=== PATIENT | female | born 1985 | race Caucasian/White ===

== ENCOUNTER 2016-04-24 02:46 | Inpatient (IN) | payer MEDICAID ==
[2016-04-24] VITALS (7 sets, daily range): BP systolic 103–160; BP diastolic 54–77; PULSE 55–67; RESP 16–20; TEMP 97–98.1; O2SAT 96–100
[~2016-04-24] VITALS: Ht 172.7 cm; Wt 104.3 kg
[2016-04-24] MEDS ORDERED: MORPHINE 4 MG/ML INJ. SYRINGE IVP ONE ×2 (03:00→04:30)
[2016-04-24] MEDS ORDERED: NACL 0.9% 1,000 ML IV ONE (03:00)
[2016-04-24] MEDS ORDERED: ONDANSETRON HCL 4 MG/2 ML VIAL IVP ONE ×2 (03:00→04:30)
[2016-04-24 03:26] LABS: BASOPHILS # (AUTO) 0.1 K/uL (0.0-0.2); BASOPHILS % (AUTO) 0.6 % (0.0-2.0); EOSINOPHILS # (AUTO) 0.1 K/uL (0.0-0.4); EOSINOPHILS % (AUTO) 1.4 % (0.0-4.0); HEMATOCRIT 41.7 % (36-48); HEMOGLOBIN 13.8 g/dL (12.0-16.0); LYMPHOCYTES # (AUTO) 3.4 K/uL (1.0-5.5); MEAN CORPUSCULAR HEMOGLOBIN 27 pg (27-31); MEAN CORPUSCULAR HGB CONC 33 % (32-36); MEAN CORPUSCULAR VOLUME 82 fL (79.0-98.0); MONOCYTES # (AUTO) 0.7 K/uL (0.0-1.0); MONOCYTES % (AUTO) 6.9 % (1.7-9.3); NEUTROPHILS # (AUTO) 6.4 K/uL (1.8-7.7); NEUTROPHILS % (AUTO) 59.1 % (40.0-70.0); PLATELET COUNT (AUTO) 229 K/uL (130-430); RED BLOOD CELL COUNT(AUTO) 5.06 MIL/uL (4.2-6.2); RED CELL DISTRIBUTION WIDTH 13.2 % (9.0-15.0); WHITE BLOOD COUNT (AUTO) 10.7 K/uL (4.8-10.8)
[2016-04-24] MEDS ORDERED: HYDROmorphone 1 MG INJ. 1 MG/ML AMPUL IVP ONE (03:30)
[2016-04-24] MEDS ORDERED: HYDROmorphone 1 MG INJ. 1 MG/ML AMPUL ONE (03:33)
[2016-04-24 03:37] LABS: CREATININE 0.81 mg/dL (0.55-1.30); POTASSIUM 3.3 mmol/L (3.5-5.1)
[2016-04-24 03:42] LABS: ALBUMIN 3.8 g/dL (3.4-4.8); TOTAL BILIRUBIN 0.2 mg/dL (0.0-1.0); TOTAL PROTEIN, SERUM 7.5 g/dL (6.4-8.3)
[2016-04-24 03:51] LABS: BILIRUBIN,URINE NEGATIVE (NEGATIVE); BLOOD, URINE NEGATIVE (NEGATIVE); CLARITY/URINE CLOUDY (CLEAR); COLOR,URINE YELLOW (YELLOW); GLUCOSE,URINE NEGATIVE (NEGATIVE); KETONES,URINE NEGATIVE (NEGATIVE); LEUKOCYTE ESTERASE ,URINE NEGATIVE (NEGATIVE); NITRITE, URINE NEGATIVE (NEGATIVE); PH,URINE 7.5 (5.0-8.0); PROTEIN URINE NEGATIVE (NEGATIVE); UROBILINOGEN,URINE 0.2 (0.2-1.0)
[2016-04-24 03:55] LABS: BACTERIA,URINE FEW /HPF (None Seen); WBC,URINE 0-3 /HPF (0-3)
[2016-04-24 03:56] LABS: MUCUS,URINE None Seen /LPF (None Seen); RBC,URINE 0-3 /HPF (0-3); URINE AMORPHOUS PHOSPHATES 3+ /HPF (None Seen)
[2016-04-24] MEDS ORDERED: ACETAMINOPHEN 325 MG TABLET PO PRN (05:15)
[2016-04-24] MEDS ORDERED: HYDROmorphone 1 MG INJ. 1 MG/ML AMPUL IVP PRN (05:15)
[2016-04-24] MEDS ORDERED: MORPHINE 4 MG/ML INJ. SYRINGE IVP PRN (05:15)
[2016-04-24] MEDS ORDERED: ONDANSETRON HCL 4 MG/2 ML VIAL IVP PRN (05:15)
[2016-04-24] MEDS ORDERED: LR 1,000 ML IV SCH (05:15)
[2016-04-24] MEDS: PIPERACILLIN/TAZO 3.375 GM in NS 50 ML IV SCH ×2 (06:00→11:05)
== END 2016-04-24 16:15 | disposition left against medical advice (07) ==
LOC: SED 02:46 → SMU 05:05
PROVIDERS: ADMIT Internal Medicine; ATTEND Internal Medicine
DX: K80.20 Calculus of gallbladder without cholecystitis without obstruction (principal); E87.6 Hypokalemia; K82.8 Other specified diseases of gallbladder; J45.909 Unspecified asthma, uncomplicated; Z53.21 Procedure and treatment not carried out due to patient leaving prior to being seen by health care provider
CPT/HCPCS: 36415; 80053; 81000-TC; 81025; 82150-TC; 83690-TC; 85025; 96361; 96374; 96375; 96376; 99285; J1170; J2270; J2405; J2543; J7120

== ENCOUNTER 2017-08-20 22:57 | Inpatient (IN) | payer MEDICAID, OTHER ==
[~2017-08-20] VITALS: Ht 172.7 cm; Wt 90.7 kg
[2017-08-20 23:00] VITALS: BP_SYST 137
[2017-08-20] MEDS ORDERED: ONDANSETRON HCL 4 MG/2 ML VIAL IVP ONE (23:30)
[2017-08-20] MEDS ORDERED: NACL 0.9% 1,000 ML IV ONE (23:30)
[2017-08-20] MEDS ORDERED: MORPHINE 4 MG/ML INJ. SYRINGE IVP ONE (23:30)
[2017-08-20 23:43] LABS: BASOPHILS # (AUTO) 0.1 K/uL (0.0-0.2); BASOPHILS % (AUTO) 0.7 % (0.0-2.0); EOSINOPHILS # (AUTO) 0.1 K/uL (0.0-0.4); EOSINOPHILS % (AUTO) 1.5 % (0.0-4.0); HEMATOCRIT 39.1 % (36-48); LYMPHOCYTES # (AUTO) 2.5 K/uL (1.0-5.5); LYMPHOCYTES % (AUTO) 25.6 % (20.5-51.5); MEAN CORPUSCULAR HEMOGLOBIN 28 pg (27-31); MEAN CORPUSCULAR HGB CONC 33 % (32-36); MEAN CORPUSCULAR VOLUME 84 fL (79.0-98.0); MONOCYTES # (AUTO) 0.6 K/uL (0.0-1.0); MONOCYTES % (AUTO) 6.5 % (1.7-9.3); NEUTROPHILS # (AUTO) 6.3 K/uL (1.8-7.7); NEUTROPHILS % (AUTO) 65.7 % (40.0-70.0); PLATELET COUNT (AUTO) 226 K/uL (130-430); RED BLOOD CELL COUNT(AUTO) 4.66 MIL/uL (4.2-6.2); RED CELL DISTRIBUTION WIDTH 13.2 % (9.0-15.0); WHITE BLOOD COUNT (AUTO) 9.6 K/uL (4.8-10.8)
[2017-08-20 23:56] LABS: CALCIUM 7.9 mg/dL (8.4-11.0); CREATININE 0.77 mg/dL (0.55-1.30); POTASSIUM 3.3 mmol/L (3.5-5.1)
[2017-08-21] LABS: ALBUMIN 3.6 g/dL (3.4-4.8); TOTAL BILIRUBIN 0.2 mg/dL (0.0-1.0)
[2017-08-21] MEDS ORDERED: ONDANSETRON HCL 4 MG/2 ML VIAL IVP PRN (00:30)
[2017-08-21 00:47] VITALS: BP_SYST 126
[2017-08-21] MEDS: D5/0.45 NS 1,000 ML IV SCH ×3 (00:56→22:48)
[2017-08-21] MEDS: MORPHINE 2 MG/ML INJ. SYRINGE IVP PRN ×5 (01:11→20:49)
[2017-08-21 08:25] VITALS: BP_SYST 110
[2017-08-21 09:57] LABS: BILIRUBIN,URINE NEGATIVE (NEGATIVE); BLOOD, URINE NEGATIVE (NEGATIVE); CLARITY/URINE CLEAR (CLEAR); COLOR,URINE YELLOW (YELLOW); GLUCOSE,URINE NEGATIVE (NEGATIVE); KETONES,URINE NEGATIVE (NEGATIVE); LEUKOCYTE ESTERASE ,URINE NEGATIVE (NEGATIVE); NITRITE, URINE NEGATIVE (NEGATIVE); PH,URINE 7.5 (5.0-8.0); PROTEIN URINE NEGATIVE (NEGATIVE); UROBILINOGEN,URINE 0.2 (0.2-1.0)
[2017-08-21 11:00] LABS: CALCIUM 7.8 mg/dL (8.4-11.0); CREATININE 0.69 mg/dL (0.55-1.30); POTASSIUM 3.7 mmol/L (3.5-5.1)
[2017-08-21 11:04] LABS: ALBUMIN 3.2 g/dL (3.4-4.8); TOTAL BILIRUBIN 0.3 mg/dL (0.0-1.0)
[2017-08-21 11:09] LABS: BASOPHILS # (AUTO) 0.1 K/uL (0.0-0.2); BASOPHILS % (AUTO) 1.1 % (0.0-2.0); EOSINOPHILS # (AUTO) 0.1 K/uL (0.0-0.4); EOSINOPHILS % (AUTO) 1.5 % (0.0-4.0); HEMATOCRIT 39.7 % (36-48); HEMOGLOBIN 13.2 g/dL (12.0-16.0); LYMPHOCYTES # (AUTO) 1.9 K/uL (1.0-5.5); LYMPHOCYTES % (AUTO) 25.1 % (20.5-51.5); MEAN CORPUSCULAR HEMOGLOBIN 28 pg (27-31); MEAN CORPUSCULAR HGB CONC 33 % (32-36); MEAN CORPUSCULAR VOLUME 85 fL (79.0-98.0); MONOCYTES # (AUTO) 0.5 K/uL (0.0-1.0); MONOCYTES % (AUTO) 7.1 % (1.7-9.3); NEUTROPHILS # (AUTO) 5.1 K/uL (1.8-7.7); NEUTROPHILS % (AUTO) 65.2 % (40.0-70.0); PLATELET COUNT (AUTO) 224 K/uL (130-430); RED BLOOD CELL COUNT(AUTO) 4.68 MIL/uL (4.2-6.2); RED CELL DISTRIBUTION WIDTH 13.3 % (9.0-15.0); WHITE BLOOD COUNT (AUTO) 7.7 K/uL (4.8-10.8)
[2017-08-21 13:17] VITALS: BP_SYST 110
[2017-08-21 16:45] VITALS: BP_SYST 117
[2017-08-21 20:10] VITALS: BP_SYST 133
[2017-08-21] MEDS ORDERED: TEMAZEPAM 15 MG CAPSULE PO PRN (21:45)
[2017-08-21 23:52] VITALS: BP_SYST 116
[2017-08-22] MEDS: MORPHINE 2 MG/ML INJ. SYRINGE IVP PRN ×3 (00:05→09:14)
[2017-08-22 06:29] LABS: BASOPHILS % (AUTO) 0.6 % (0.0-2.0); EOSINOPHILS # (AUTO) 0.2 K/uL (0.0-0.4); EOSINOPHILS % (AUTO) 2.5 % (0.0-4.0); HEMATOCRIT 39.9 % (36-48); HEMOGLOBIN 13.3 g/dL (12.0-16.0); LYMPHOCYTES # (AUTO) 2.4 K/uL (1.0-5.5); LYMPHOCYTES % (AUTO) 31.1 % (20.5-51.5); MEAN CORPUSCULAR HEMOGLOBIN 28 pg (27-31); MEAN CORPUSCULAR HGB CONC 33 % (32-36); MEAN CORPUSCULAR VOLUME 84 fL (79.0-98.0); MONOCYTES # (AUTO) 0.6 K/uL (0.0-1.0); MONOCYTES % (AUTO) 7.7 % (1.7-9.3); NEUTROPHILS # (AUTO) 4.6 K/uL (1.8-7.7); NEUTROPHILS % (AUTO) 58.1 % (40.0-70.0); PLATELET COUNT (AUTO) 221 K/uL (130-430); RED BLOOD CELL COUNT(AUTO) 4.76 MIL/uL (4.2-6.2); RED CELL DISTRIBUTION WIDTH 13.2 % (9.0-15.0); WHITE BLOOD COUNT (AUTO) 7.9 K/uL (4.8-10.8)
[2017-08-22 06:40] LABS: CREATININE 0.66 mg/dL (0.55-1.30); POTASSIUM 3.5 mmol/L (3.5-5.1); TOTAL BILIRUBIN 0.2 mg/dL (0.0-1.0)
[2017-08-22] MEDS: D5/0.45 NS 1,000 ML IV SCH ×2 (07:39→16:30)
[2017-08-22 08:02] VITALS: BP_SYST 117
[2017-08-22 12:03] VITALS: BP_SYST 111
[2017-08-22] MEDS ORDERED: LR 1,000 ML IV SCH (15:01)
[2017-08-22] MEDS ORDERED: MORPHINE 4 MG/ML INJ. SYRINGE IVP PRN ×2 (15:15)
[2017-08-22] MEDS ORDERED: MEPERIDINE HCL/PF 25 MG/ML DISP.SYRIN IVP PRN (15:15)
[2017-08-22] MEDS ORDERED: MORPHINE SULFATE 10 MG/ML VIAL IVP PRN (15:15)
[2017-08-22] MEDS ORDERED: BUPIVACAINE /EPINEPHRINE/PF 0.5% 30 ML VIAL INJ ONE (16:25)
[2017-08-22] MEDS ORDERED: LR 1,000 ML IV.SOLN IV ONE (16:25)
[2017-08-22] MEDS ORDERED: KETOROLAC TROMETHAMINE 30 MG VIAL ONE (16:25)
[2017-08-22] MEDS ORDERED: fentaNYL CITRATE 250 MCG/5 ML AMP ONE (16:25)
[2017-08-22] MEDS ORDERED: ONDANSETRON HCL 4 MG/2 ML VIAL ONE (16:25)
[2017-08-22] MEDS ORDERED: ROCURONIUM BROMIDE 10 MG/ML (ZEMURON) ONE (16:25)
[2017-08-22] MEDS ORDERED: NS IRRIG SOLN 1000 ML IR ONE (16:25)
[2017-08-22] MEDS ORDERED: CEFAZOLIN 2 GM IVPB PREMIX 50 ML IV ONE (16:25)
[2017-08-22] MEDS ORDERED: SEVOFLURANE 15 MIN GAS INH ONE (16:25)
[2017-08-22] MEDS ORDERED: PROPOFOL 200MG/ 20ML VIAL (DIPRIVAN) IV ONE (16:25)
[2017-08-22] MEDS ORDERED: NS 1000 ML BAG IV ONE (16:25)
[2017-08-22] MEDS ORDERED: DEXAMETHASONE SOD PHOSPHATE 4 MG/ML VIAL ONE (16:25)
[2017-08-22] MEDS ORDERED: MORPHINE SULFATE 10 MG/ML VIAL ONE (16:48)
[2017-08-22] MEDS: ONDANSETRON HCL 4 MG/2 ML VIAL IVP PRN ×2 (18:02→20:02)
[2017-08-22 19:20] VITALS: BP_SYST 110
[2017-08-22] MEDS: HYDROmorphone 1 MG INJ. 1 MG/ML AMPUL IVP PRN (20:03)
[2017-08-22] MEDS: METOCLOPRAMIDE HCL 10 MG/2 ML VIAL IVP PRN (22:00)
[2017-08-23] MEDS: MORPHINE 4 MG/ML INJ. SYRINGE IVP PRN (02:10)
[2017-08-23] MEDS: D5/0.45 NS 1,000 ML IV SCH ×3 (02:42→23:54)
[2017-08-23 04:08] VITALS: BP_SYST 112
[2017-08-23 06:18] LABS: BASOPHILS % (AUTO) 0.4 % (0.0-2.0); EOSINOPHILS % (AUTO) 0.6 % (0.0-4.0); HEMATOCRIT 36.5 % (36-48); HEMOGLOBIN 12.5 g/dL (12.0-16.0); LYMPHOCYTES # (AUTO) 1.5 K/uL (1.0-5.5); LYMPHOCYTES % (AUTO) 20.2 % (20.5-51.5); MEAN CORPUSCULAR HEMOGLOBIN 29 pg (27-31); MEAN CORPUSCULAR HGB CONC 34 % (32-36); MEAN CORPUSCULAR VOLUME 84 fL (79.0-98.0); MONOCYTES # (AUTO) 0.7 K/uL (0.0-1.0); MONOCYTES % (AUTO) 9.6 % (1.7-9.3); NEUTROPHILS # (AUTO) 5.4 K/uL (1.8-7.7); NEUTROPHILS % (AUTO) 69.2 % (40.0-70.0); PLATELET COUNT (AUTO) 204 K/uL (130-430); RED BLOOD CELL COUNT(AUTO) 4.34 MIL/uL (4.2-6.2); RED CELL DISTRIBUTION WIDTH 13.1 % (9.0-15.0); WHITE BLOOD COUNT (AUTO) 7.6 K/uL (4.8-10.8)
[2017-08-23 06:52] LABS: ALBUMIN 2.7 g/dL (3.4-4.8); CALCIUM 7.9 mg/dL (8.4-11.0); CREATININE 0.63 mg/dL (0.55-1.30); POTASSIUM 3.6 mmol/L (3.5-5.1); TOTAL BILIRUBIN 1.2 mg/dL (0.0-1.0)
[2017-08-23 08:02] VITALS: BP_SYST 121
[2017-08-23] MEDS: HYDROmorphone 1 MG INJ. 1 MG/ML AMPUL IVP PRN ×3 (09:17→20:55)
[2017-08-23] MEDS: METOCLOPRAMIDE HCL 10 MG/2 ML VIAL IVP PRN ×2 (09:18→16:52)
[2017-08-23] MEDS: MORPHINE 2 MG/ML INJ. SYRINGE IVP PRN (11:55)
[2017-08-23 12:40] VITALS: BP_SYST 125
[2017-08-23 16:40] VITALS: BP_SYST 112
[2017-08-23] MEDS: ONDANSETRON HCL 4 MG/2 ML VIAL IVP PRN (21:02)
[2017-08-24] VITALS: BP_SYST 111
[2017-08-24] MEDS: MORPHINE 2 MG/ML INJ. SYRINGE IVP PRN ×2 (04:58)
[2017-08-24 06:51] LABS: ALBUMIN 2.9 g/dL (3.4-4.8); CALCIUM 8.1 mg/dL (8.4-11.0); CREATININE 0.55 mg/dL (0.55-1.30); POTASSIUM 3.5 mmol/L (3.5-5.1)
[2017-08-24 07:01] LABS: BASOPHILS % (AUTO) 0.5 % (0.0-2.0); EOSINOPHILS # (AUTO) 0.1 K/uL (0.0-0.4); HEMATOCRIT 37.3 % (36-48); HEMOGLOBIN 12.6 g/dL (12.0-16.0); LYMPHOCYTES # (AUTO) 1.6 K/uL (1.0-5.5); LYMPHOCYTES % (AUTO) 23.5 % (20.5-51.5); MEAN CORPUSCULAR HEMOGLOBIN 29 pg (27-31); MEAN CORPUSCULAR HGB CONC 34 % (32-36); MEAN CORPUSCULAR VOLUME 84 fL (79.0-98.0); MONOCYTES # (AUTO) 0.7 K/uL (0.0-1.0); MONOCYTES % (AUTO) 9.4 % (1.7-9.3); NEUTROPHILS # (AUTO) 4.6 K/uL (1.8-7.7); NEUTROPHILS % (AUTO) 64.6 % (40.0-70.0); PLATELET COUNT (AUTO) 207 K/uL (130-430); RED BLOOD CELL COUNT(AUTO) 4.43 MIL/uL (4.2-6.2); RED CELL DISTRIBUTION WIDTH 13.2 % (9.0-15.0)
[2017-08-24 07:50] VITALS: BP_SYST 113
[2017-08-24] MEDS: MORPHINE 4 MG/ML INJ. SYRINGE IVP PRN (08:08)
[2017-08-24] MEDS: D5/0.45 NS 1,000 ML IV SCH (10:32)
[2017-08-24] MEDS: HYDROmorphone 1 MG INJ. 1 MG/ML AMPUL IVP PRN (10:38)
[2017-08-24] MEDS: METOCLOPRAMIDE HCL 10 MG/2 ML VIAL IVP PRN (10:42)
[2017-08-24 12:00] VITALS: BP_SYST 115
[2017-08-24 13:10] VITALS: BP_SYST 109
== END 2017-08-24 14:25 | disposition home or self-care (01) | DRG 417 ==
LOC: SED 22:57 → SMU 08-21 00:27
PROVIDERS: ADMIT Internal Medicine Hospice and Palliative Medicine; ATTEND Internal Medicine Hospice and Palliative Medicine
PROC: 0FT44ZZ Resection of Gallbladder, Percutaneous Endoscopic Approach (ICD-10-PCS; principal; 2017-08-22 15:00)
DX: K80.00 Calculus of gallbladder with acute cholecystitis without obstruction (principal); K85.10 Biliary acute pancreatitis without necrosis or infection; J45.909 Unspecified asthma, uncomplicated; E87.6 Hypokalemia; E66.9 Obesity, unspecified; K70.0 Alcoholic fatty liver; Z68.30 Body mass index [BMI] 30.0-30.9, adult
CPT/HCPCS: 36415; 76705; 78226; 80053; 83690-TC; 84702-TC; 85025; 87070; 87070-TC; 87075-TC; 87081; 88304; 96361; 96374; 96375; 99285; A9537; C1727; J0690; J1100; J1170; J1885; J2270; J2405; J2704; J2765; J3010; J3490; J7030; J7120

== ENCOUNTER 2018-01-24 12:26 | Emergency (ER) | payer MEDICAID ==
[~2018-01-24] VITALS: Ht 172.7 cm; Wt 99.8 kg
[2018-01-24 12:33] VITALS: BP_SYST 136
[2018-01-24 14:09] VITALS: BP_SYST 128
== END 2018-01-24 14:08 | disposition home or self-care (01) ==
LOC: SED 12:26
DX: S86.912A Strain of unspecified muscle(s) and tendon(s) at lower leg level, left leg, initial encounter (principal); J45.909 Unspecified asthma, uncomplicated; Z90.49 Acquired absence of other specified parts of digestive tract; Z87.442 Personal history of urinary calculi; W19.XXXA Unspecified fall, initial encounter; Y93.89 Activity, other specified; Y92.89 Other specified places as the place of occurrence of the external cause; Y99.8 Other external cause status
CPT/HCPCS: 73564; 81025; 99283